=== PATIENT | male | born 1940 | race Caucasian/White ===

== ENCOUNTER 2021-04-29 10:54 | Emergency (ER) | payer MEDICARE ==
[2021-04-29 11:40] LABS: #Eosinphils 0.1 10x3/uL (0.0-0.5); #Monocytes 0.4 10x3/uL (0.0-1.1); #Neutrophils 4.1 10x3/uL (1.5-8.4); %Basophils 0.7 % (0.0-2.0); %Eosinophils 1.8 % (0.0-6.0); %Lymphocytes 17.6 % (18.0-47.0); %Monocytes 7.4 % (0.0-10.0); %Neutrophils 72.3 % (40.0-75.0); Hemoglobin 10.4 g/dL (13.5-17.5); Mean Corpuscular HGB CONC 32.2 g/dL (32.0-36.0); Mean Corpuscular Hemoglobin 30.1 pg (27.0-33.0); Mean Corpuscular Volume 93.6 fl (81.2-95.1); Mean Platelet Volume 10.9 fl (7.4-10.4); Platelet Count 208 10x3/uL (150-450); RBC Distribution Width 15.1 % (11.5-14.5); Red Blood Cell (RBC) Count 3.45 10x6/uL (4.32-5.72); White Blood Cell (WBC) Count 5.7 10x3/uL (3.5-10.5)
[2021-04-29 12:00] LABS: ALT (SGPT) 7 U/L (8-55); AST (SGOT) 14 U/L (5-34); Albumin 3.3 g/dL (3.4-4.8); Alkaline Phosphatase 56 U/L (40-110); Anion Gap 9 mmol/L (10-20); BUN (Urea Nitrogen) 17 mg/dL (8.4-25.7); Bilirubin, Total 0.3 mg/dL (0.2-1.2); Calc. Creatinine Clearance 0 mL/min (70-130); Calcium 8.7 mg/dL (7.8-10.44); Carbon Dioxide 27 mmol/L (23-31); Chloride 107 mmol/L (98-107); Globulin 2.3 g/dL (2.4-3.5); Glucose 98 mg/dL (83-110); Potassium 4.4 mmol/L (3.5-5.1); Protein, Total 5.6 g/dL (5.8-8.1); Sodium 139 mmol/L (136-145)
== END 2021-04-29 18:49 | disposition home or self-care (01) ==
LOC: CSHERS 10:54
DX: R51.9 Headache, unspecified (principal); R29.6 Repeated falls; R53.1 Weakness; E78.5 Hyperlipidemia, unspecified; Z87.891 Personal history of nicotine dependence; W18.30XA Fall on same level, unspecified, initial encounter; Y92.129 Unspecified place in nursing home as the place of occurrence of the external cause
CPT/HCPCS: 70450; 71045; 72125; 80053; 83880; 84484; 85025; 93005

== ENCOUNTER 2021-05-13 14:55 | Inpatient (IN) | payer MEDICARE ==
[2021-05-13] MEDS ORDERED: Cefepime 2 GM VIAL ONE (15:33)
[2021-05-13 15:54] LABS: #Eosinphils 0.1 10x3/uL (0.0-0.5); #Monocytes 0.5 10x3/uL (0.0-1.1); #Neutrophils 5.5 10x3/uL (1.5-8.4); %Basophils 0.5 % (0.0-2.0); %Lymphocytes 16.9 % (18.0-47.0); %Monocytes 6.8 % (0.0-10.0); %Neutrophils 74.5 % (40.0-75.0); Hemoglobin 10.8 g/dL (13.5-17.5); Mean Corpuscular Volume 93.9 fl (81.2-95.1); Mean Platelet Volume 10.9 fl (7.4-10.4); Platelet Count 280 10x3/uL (150-450); RBC Distribution Width 14.2 % (11.5-14.5); White Blood Cell (WBC) Count 7.3 10x3/uL (3.5-10.5)
[2021-05-13 16:09] LABS: ALT (SGPT) 9 U/L (8-55); AST (SGOT) 14 U/L (5-34); Albumin 3.5 g/dL (3.4-4.8); Alkaline Phosphatase 63 U/L (40-110); Anion Gap 13 mmol/L (10-20); BUN (Urea Nitrogen) 22 mg/dL (8.4-25.7); Bilirubin, Total 0.3 mg/dL (0.2-1.2); Calc. Creatinine Clearance 0 mL/min (70-130); Carbon Dioxide 25 mmol/L (23-31); Chloride 106 mmol/L (98-107); Globulin 2.9 g/dL (2.4-3.5); Glucose 130 mg/dL (83-110); Potassium 3.9 mmol/L (3.5-5.1); Protein, Total 6.4 g/dL (5.8-8.1); Sodium 140 mmol/L (136-145)
[2021-05-13 16:49] LABS: Bilirubin Neg (Negative); Blood, Urine 25 (Negative); Clarity Slightly Cloudy (Clear); Glucose, Urine (Dipstick) Normal (Negative); Ketone, Urine Negative (Negative); Leukocyte 100 (Negative); Nitrite Negative (Negative); Protein, Urine (Dipstick) 30 mg/dl (Neg-Trace); Urobilinogen Normal mg/dL (Less than 2)
[2021-05-13 17:03] LABS: WBC/HPF 21-50 HPF (0-3)
[2021-05-13 17:04] LABS: Bacteria/HPF 2+ HPF (None Seen); Mucous/LPF 1+ LPF (<2+); Oval Fat Bodies/HPF 1+ HPF (None Seen); Squamous Epithelial 0-3 HPF (0-3)
[2021-05-13 18:37] LABS: Lactic Acid 0.9 mmol/L (0.5-2.2)
[2021-05-13] MEDS ORDERED: Acetaminophen 325 MG TAB PO PRN (21:23)
[2021-05-13] MEDS ORDERED: Guaifenesin DM 100-10/5 ML UDCUP PO PRN (21:23)
[2021-05-13] MEDS ORDERED: Calcium Carbonate 500 MG ChewTAB PO PRN (21:23)
[2021-05-13] MEDS ORDERED: Senokot S 8.6-50 MG TAB PO PRN (21:23)
[2021-05-13] MEDS ORDERED: HYDROcodone/Acetaminophen 5/325 mg Tablet PO PRN (21:23)
[2021-05-13] MEDS ORDERED: Ondansetron PF 4 MG/2 ML Vial IVP PRN (21:23)
[2021-05-13] MEDS ORDERED: Lactated Ringer's 1,000 ML IV SCH (21:45)
[2021-05-13] MEDS ORDERED: Atorvastatin Calcium 10 MG TAB PO SCH (22:00)
[2021-05-13 22:30] VITALS: BMI 25.1
[2021-05-13] MEDS ORDERED: Dextrose 5 %-0.45 % NaCl 1,000 ML IV SCH (23:00)
[2021-05-14] MEDS ORDERED: hydrALAZINE 20 MG/ML VIAL SLOW IVP PRN (01:03)
[2021-05-14] MEDS ORDERED: Lactated Ringer's 1,000 ML IV SCH (01:30)
[2021-05-14] MEDS ORDERED: Atorvastatin Calcium 10 MG TAB PO SCH ×2 (01:30→21:00)
[2021-05-14] MEDS ORDERED: Dextrose 5 %-0.45 % NaCl 1,000 ML IV SCH (02:00)
[2021-05-14 04:23] LABS: Anion Gap 9 mmol/L (10-20); BUN (Urea Nitrogen) 21 mg/dL (8.4-25.7); Calc. Creatinine Clearance 81 mL/min (70-130); Calcium 8.7 mg/dL (7.8-10.44); Carbon Dioxide 26 mmol/L (23-31); Chloride 109 mmol/L (98-107); Glucose 100 mg/dL (83-110); Potassium 3.3 mmol/L (3.5-5.1); Sodium 141 mmol/L (136-145)
[2021-05-14 04:42] LABS: Thyroid Stimulating Hormone 1.1084 uIU/mL (0.35-4.94)
[2021-05-14 04:46] LABS: #Eosinphils 0.1 10x3/uL (0.0-0.5); #Monocytes 0.5 10x3/uL (0.0-1.1); #Neutrophils 4.4 10x3/uL (1.5-8.4); %Basophils 0.4 % (0.0-2.0); %Eosinophils 1.6 % (0.0-6.0); %Lymphocytes 25.8 % (18.0-47.0); %Monocytes 7.6 % (0.0-10.0); %Neutrophils 64.5 % (40.0-75.0); Hemoglobin 10.1 g/dL (13.5-17.5); Mean Corpuscular HGB CONC 32.9 g/dL (32.0-36.0); Mean Corpuscular Hemoglobin 30.2 pg (27.0-33.0); Mean Corpuscular Volume 91.9 fl (81.2-95.1); Mean Platelet Volume 10.9 fl (7.4-10.4); Platelet Count 256 10x3/uL (150-450); RBC Distribution Width 14.2 % (11.5-14.5); Red Blood Cell (RBC) Count 3.34 10x6/uL (4.32-5.72); White Blood Cell (WBC) Count 6.8 10x3/uL (3.5-10.5)
[2021-05-14] MEDS ORDERED: Potassium Chloride 20 MEQ TAB PO SCH (05:30)
[2021-05-14] MEDS: Aspirin 81 mg Enteric Coated Tablet PO SCH (07:55)
[2021-05-14] MEDS: cefTRIAXone\\ROCEPHIN 1 GM in Sodium Chloride 0.9% 100 ML IVPB SCH (07:56)
[2021-05-14] MEDS: Nicotine 21 MG PATCH TD SCH ×2 (07:56→08:22)
[2021-05-14] MEDS: Enoxaparin Sodium 40 MG/0.4 ML SYRINGE SC SCH (07:56)
[2021-05-14] MEDS ORDERED: Fludrocortisone Acetate 0.1 MG TAB PO SCH (09:00)
[2021-05-14] MEDS ORDERED: Electrolyte Replacement Protocol 1 EACH FS SCH (11:15)
[2021-05-14] MEDS ORDERED: Potassium Bicarbonate/Cit Ac 20 MEQ TAB PO SCH (12:00)
[2021-05-14] MEDS ORDERED: Magnesium 2 GM/50 ML 2 GM in Premix Bag 1 BAG IVPB SCH (12:00)
[2021-05-14] MEDS ORDERED: Cosyntropin 250 MCG VIAL SLOW IVP SCH (14:00)
[2021-05-14 16:32] LABS: Potassium 4.1 mmol/L (3.5-5.1)
[2021-05-14 17:04] LABS: SARS-CoV-2 PCR by NAA Not Detected (NotDetected)
[2021-05-14] MEDS ORDERED: Tamsulosin HCl 0.4 MG CAP PO SCH (18:00)
[2021-05-15 04:00] LABS: #Eosinphils 0.2 10x3/uL (0.0-0.5); #Monocytes 0.5 10x3/uL (0.0-1.1); #Neutrophils 3.6 10x3/uL (1.5-8.4); %Basophils 0.5 % (0.0-2.0); %Lymphocytes 25.8 % (18.0-47.0); %Monocytes 8.4 % (0.0-10.0); Hemoglobin 9.7 g/dL (13.5-17.5); Mean Corpuscular HGB CONC 33.3 g/dL (32.0-36.0); Mean Corpuscular Hemoglobin 30.7 pg (27.0-33.0); Mean Corpuscular Volume 92.1 fl (81.2-95.1); Mean Platelet Volume 10.5 fl (7.4-10.4); Platelet Count 259 10x3/uL (150-450); RBC Distribution Width 14.2 % (11.5-14.5); Red Blood Cell (RBC) Count 3.16 10x6/uL (4.32-5.72)
[2021-05-15 04:14] LABS: Phosphorus 2.5 mg/dL (2.3-4.7)
[2021-05-15 04:15] LABS: ALT (SGPT) 8 U/L (8-55); AST (SGOT) 13 U/L (5-34); Albumin 3.1 g/dL (3.4-4.8); Alkaline Phosphatase 55 U/L (40-110); Anion Gap 12 mmol/L (10-20); BUN (Urea Nitrogen) 16 mg/dL (8.4-25.7); Bilirubin, Total 0.2 mg/dL (0.2-1.2); Calc. Creatinine Clearance 86 mL/min (70-130); Calcium 8.3 mg/dL (7.8-10.44); Carbon Dioxide 24 mmol/L (23-31); Chloride 109 mmol/L (98-107); Globulin 2.4 g/dL (2.4-3.5); Glucose 97 mg/dL (83-110); Magnesium 2.1 mg/dL (1.6-2.6); Potassium 3.6 mmol/L (3.5-5.1); Protein, Total 5.5 g/dL (5.8-8.1); Sodium 141 mmol/L (136-145)
[2021-05-15] MEDS: Nicotine 21 MG PATCH TD SCH (08:14)
[2021-05-15] MEDS: cefTRIAXone\\ROCEPHIN 1 GM in Sodium Chloride 0.9% 100 ML IVPB SCH (08:14)
[2021-05-15] MEDS: Aspirin 81 mg Enteric Coated Tablet PO SCH (08:14)
[2021-05-15] MEDS: Enoxaparin Sodium 40 MG/0.4 ML SYRINGE SC SCH (08:14)
[2021-05-15 12:39] VITALS: TEMP 98.1
[2021-05-15 13:30] VITALS: BP 106/62
[2021-05-16] MEDS ORDERED: Fludrocortisone Acetate 0.1 MG TAB PO SCH (09:00)
== END 2021-05-15 13:47 | disposition home or self-care (01) | DRG 312 ==
LOC: CSHERS 14:55 → CSHTELE 21:41
PROVIDERS: ADMIT Student in an Organized Health Care Education/Training Program; ATTEND Family Medicine
DX: I95.1 Orthostatic hypotension (principal); N39.0 Urinary tract infection, site not specified; E87.2 Acidosis; G93.49 Other encephalopathy; E78.5 Hyperlipidemia, unspecified; F03.90 Unspecified dementia, unspecified severity, without behavioral disturbance, psychotic disturbance, mood disturbance, and anxiety; I25.10 Atherosclerotic heart disease of native coronary artery without angina pectoris; N40.0 Benign prostatic hyperplasia without lower urinary tract symptoms; Z20.822 Contact with and (suspected) exposure to COVID-19; E86.0 Dehydration; I73.9 Peripheral vascular disease, unspecified; Z79.82 Long term (current) use of aspirin; Z79.899 Other long term (current) drug therapy; Z95.0 Presence of cardiac pacemaker; Z95.5 Presence of coronary angioplasty implant and graft
CPT/HCPCS: 36415; 36416; 70450; 71045; 80048; 80053; 80400; 81003; 81015; 82024; 82533; 82607; 82746; 83605; 83735; 84100; 84145; 84443; 84484; 85025; 86850; 86900; 86901; 87040; 87086; 93005; 93306; 96365; J0692; J0696; J0834; J1650; J3475; J3490; J7042; J7120; U0003; U0005